=== PATIENT | female | born 1965 | race Caucasian/White ===

== ENCOUNTER → 2016-06-02 | Outpatient (CLI) | payer MEDICARE, MEDICAID ==
[~2016-06-02] MED LIST: DEPAKOTE500 MG PO; ELAVIL-DPS100 MG PO; GABAPENTIN600 MG PO; MOTRIN-DPS800 MG PO; PERCOCET 5 DPS1 TAB PO; PRAVACHOL40 MG PO; PROTONIX40 MG PO; [UNRECOGNIZED DRUG - OTHER] PO
== END | disposition home or self-care (01) ==
LOC: PTH.S 10:58
DX: Z01.812 Encounter for preprocedural laboratory examination (principal); Z53.9 Procedure and treatment not carried out, unspecified reason

== ENCOUNTER 2016-06-07 05:48 | Observation (INO) | payer MEDICARE, MEDICAID ==
[~2016-06-07] VITALS: Ht 162.6 cm; Wt 96.3 kg
[2016-06-09] MEDS ORDERED: GABAPENTIN600 MG PO (16:54)
[2016-06-09] MEDS ORDERED: PROTONIX40 MG PO (16:54)
[2016-06-09] MEDS ORDERED: ELAVIL-DPS100 MG PO (16:55)
[2016-06-09] MEDS ORDERED: DEPAKOTE500 MG PO (16:55)
[2016-06-09] MEDS ORDERED: [UNRECOGNIZED DRUG - OTHER] PO (16:55)
[2016-06-09] MEDS ORDERED: PERCOCET 5 DPS1 TAB PO (16:56)
[2016-06-09] MEDS ORDERED: MOTRIN-DPS800 MG PO (16:56)
[2016-06-09] MEDS ORDERED: PRAVACHOL40 MG PO (16:56)
--- NOTE | 2016-07-02 13:33 | OR ---
ADMIT: 06/07/2016 RM/LOC: [address] [facility] MR#: [id number] [facility]#: [id number] [address] [address] JOI ARCE [address] [place] [address] Operative/Delivery Room Report SEX: F AGE: 50 : 1965 Corrected: 06/19/2016917 djs SURGERY DATE: 06/07/2016 SURGEON: Danette Medina MD PREOPERATIVE DIAGNOSES: 1. Simple endometrial hyperplasia without atypia. 2. Abnormal uterine bleeding. 3. Left ovarian cyst. 4. Obesity. POSTOPERATIVE DIAGNOSES: 1. Simple endometrial hyperplasia without atypia. 2. Abnormal uterine bleeding. 3. Left ovarian cyst. 4. Obesity. PROCEDURE: 1. Total laparoscopic hysterectomy. 2. Bilateral salpingectomy. 3. Left oophorectomy. 4. Cystoscopy. ESTIMATED BLOOD LOSS: 250 mL. IV FLUIDS: 1900 mL of crystalloid. URINE OUTPUT: 250 mL at the time of procedure. [employer] WORKER: Zonia Vázquez MD FINDINGS: Normal-appearing uterus, tubes, and right ovary. Left ovary is enlarged with at least 2-3 simple cysts noted. On cystoscopy, normal bladder mucosa, no evidence of stitch in the bladder, and no cystotomy noted, Bilateral ureteral jets seen. SPECIMENS REMOVED: Uterus, tubes, and left ovary. ANESTHESIA: General endotracheal. ANTIBIOTICS: 2 g of Ancef prior to skin incision. VTE PROPHYLAXIS: 30 mg of Lovenox subcutaneous and sequential compression devices. INDICATIONS FOR PROCEDURE: This is a 50-year-old G0, who was referred by Dr. Juan Hdez and Dr. Dany Hdez for right ovarian cyst. On review of her history, this is very simple in nature and not concerning, however, the ADMIT: 06/07/2016 RM/LOC: [address] [facility] MR#: [id number] [address] [address] JOI ARCE [address] [place] [address] Operative/Delivery Room Report SEX: F AGE: 50 : 1965 patient had a history of abnormal uterine bleeding. Endometrial biopsy was performed, which found simple hyperplasia without atypia. Multiple options of management were discussed with the patient. She desired definitive management with hysterectomy. The risks, benefits, and alternatives have been discussed with the patient and documented elsewhere. PROCEDURE IN DETAIL: The patient was taken to the operating room, where general anesthesia was placed. The patient was placed in dorsal lithotomy position, and prepped and draped in the usual sterile fashion. A time-out was performed. A single tooth tenaculum was placed in the anterior lip of the cervix. Medium VCare was inserted to the uterus, and balloon was insufflated. The cup was then placed down tight against the cervix and secured. Rice catheter was placed. Attention was then turned to the abdomen. A 5 mm incision in the umbilicus was made, and Veress was inserted. Multiple times, the problems with insufflation were noted. Skin incision was then extended. Fascia was then identified, tented up with Josette's, and entered sharply with scalpel. An 0 Vicryl was placed as the securing suture after placement of the port under direct visualization. Attention was then turned to the pelvis. An 11 mm port was placed in the left lower quadrant under direct visualization. A 5 mm port was placed in the right lower quadrant under direct visualization as well. Pictures were taken of the abdomen, and no evidence of underlying injury was noted. Everything appeared normal including a normal appendix. On examination, the right ovary did appear normal, the left ovary had multiple cysts and was enlarged. Thunderbeat was then used to transect fallopian tube from the underlying broad ligament and the ovary, this was continued to the level of the cornua. The utero-ovarian ligament was incised on the right and then, the broad ligament was further incised to the level of the round ligament. Round ligament was ligated and divided. Anterior leaflet was developed, and Thunderbeat was then used to open up and develop the bladder flap from the right side. Attention was then turned to the left side. A few physiologic sigmoid adhesions were noted and taken down with Thunderbeat from the peritoneal wall to allow visualization of the IP ligament. IP was identified, this was grasped and cauterized doubly and then cut with the Thunderbeat. The Thunderbeat was then used to continue to carry down the incision down the broad ligament to the level of the round ligament. Round ligament was cauterized and then incised with the Thunderbeat and opened. The bladder flap was then created using the Thunderbeat, and further dissection of the retropubic fascia was taken down until the VCare cup was easily palpated. The posterior leaflet was then also taken posteriorly around from the left round ligament to the right to allow better access and visualization of the cup. The uterine artery was identified and cauterized on the right. Attention was then turned to the left where it was identified and cauterized. After it was cauterized bilaterally, it was then transected on the left and then transected on the right. The colpotomy was then performed with the Thunderbeat, starting on the patient's left side, moving around posteriorly and then moving around anteriorly until the entire colpotomy was then performed. Uterus was then brought to the level of incision and then the ovary that also had been removed was brought to the incision. Uterus was replaced in ADMIT: 06/07/2016 RM/LOC: [address] [facility] MR#: [id number] [facility] [address] [address] JOI ARCE [facility] [place] [address] Operative/Delivery Room Report SEX: F AGE: 50 : 1965 the vagina for pneumoperitoneum. Attention was then turned to the abdomen. Endo Stitch was then used with the 0 V-Loc suture to close the vaginal cuff in a running fashion. One return suture was placed at the end of the cuff to secure the end. Abdomen was then irrigated. No evidence of bleeding was noted. Rodrigo Galarza was then used with 0 Vicryl to close the fascia on the 11 mm port after it was closed under direct visualization. The abdomen was desufflated, and skin was closed with 4-0 Vicryl and covered with Steri- Strips. Attention was then turned to the bladder. A 70 degree cystoscope was then inserted into the urethra after removal of the Rice catheter. Good distention was noted. Bubble was noted at the top, and no evidence of cystotomy was noted. No stitches within the bladder were noted. Both ureteral jets, both right and left, were easily seen on multiple occasions. The cystoscope was then removed, and the bladder was drained. The Rice remained out. Sponge and instrument counts were correct x2. COMPLICATIONS: None. Pathology: Uterus, bilateral fallopian tubes, and left ovary. DISPOSITION: The patient was stable and taken to the recovery room. Danette Medina MD/ cinthia JOB #: [id number] CC: Danette Medina, Attending Physician Juan Hdez, [facility] Physician Corrected: 06/19/2016 0918 [email or web address]
== END 2016-06-08 11:20 | disposition home or self-care (01) ==
LOC: WOR 05:48 → 6PED 05:48
PROC: 0UTC4ZZ Resection of Cervix, Percutaneous Endoscopic Approach (ICD-10-PCS; principal; 2016-06-07)
PROC: 0UT14ZZ Resection of Left Ovary, Percutaneous Endoscopic Approach (ICD-10-PCS; principal; 2016-06-07)
PROC: 0UT74ZZ Resection of Bilateral Fallopian Tubes, Percutaneous Endoscopic Approach (ICD-10-PCS; principal; 2016-06-07)
PROC: 0UT94ZZ Resection of Uterus, Percutaneous Endoscopic Approach (ICD-10-PCS; principal; 2016-06-07)
DX: D25.9 Leiomyoma of uterus, unspecified (principal); N85.01 Benign endometrial hyperplasia; N80.0 Endometriosis of uterus; N83.02 Follicular cyst of left ovary; E66.9 Obesity, unspecified; K21.9 Gastro-esophageal reflux disease without esophagitis; G89.4 Chronic pain syndrome; F41.9 Anxiety disorder, unspecified; Z98.890 Other specified postprocedural states; Z79.899 Other long term (current) drug therapy; Z88.2 Allergy status to sulfonamides; E78.5 Hyperlipidemia, unspecified; Z90.49 Acquired absence of other specified parts of digestive tract; Z68.35 Body mass index [BMI] 35.0-35.9, adult